=== PATIENT | male | born 1980 | race Two or more races ===

== ENCOUNTER 2017-08-29 13:55 | Emergency (ER) | payer OTHER, MEDICAID ==
[~2017-08-29] VITALS: Ht 165.1 cm; Wt 85.0 kg
[2017-08-29 14:29] VITALS: BP 123/79
[2017-08-29] MEDS ORDERED: METF500T4 PO (14:34)
== END 2017-08-29 14:55 | disposition left against medical advice (07) ==
LOC: ER 14:43
DX: Z53.21 Procedure and treatment not carried out due to patient leaving prior to being seen by health care provider (principal)